=== PATIENT | female | born 1990 | race Two or more races ===

== ENCOUNTER 2022-12-01 05:20 | Day surgery (SDC) | payer OTHER | END 2022-12-01 09:35 | disposition home or self-care (01) | LOC: AMB-ENDOS 05:20 | PROVIDERS: ATTEND Surgery | DX: K29.00 Acute gastritis without bleeding (principal); K44.9 Diaphragmatic hernia without obstruction or gangrene; R10.13 Epigastric pain; Z20.822 Contact with and (suspected) exposure to COVID-19 ==